=== PATIENT | female | born 1975 | race Caucasian/White ===

== ENCOUNTER 2019-05-17 17:49 | Observation (INO) | payer MEDICARE, MEDICAID, SELFPAY ==
--- NOTE | 2019-05-17 17:58 | ECG_ITS ---
Measurements Intervals [place] Rate: 104 P: 10 SC: 144 QRS: 31 QRSD: 77 T: 15 QT: 328 QTc: 432 Interpretive Statements SINUS TACHYCARDIA CANNOT RULE OUT SEPTAL INFARCT, AGE INDETERMINATE BASELINE ARTIFACT- I, III, AVL ABNORMAL ECG Electronically Signed On 05-18-2019 8:08:21 HOGSHEAD BUILDER by Kerwin Pate D.O.
--- NOTE | 2019-05-17 18:01 | ED.OVERDOSE ---
HPI - Overdose General Chief Complaint: Overdose Stated Complaint: AMB Time Seen by Provider: 05/17/19 17:55 Source: patient and EMS Mode of arrival: ambulatory Limitations: no limitations History of Present Illness HPI Narrative: 44-year-old woman with a history of type 2 diabetes and depression brought to the emergency department by EMS after having taken approximately 15 tablets of 850 mg metformin. She told staff that she had an argument with her paramour. Patient also states that she has been feeling poorly lately and very depressed. She states that she did not take any other medications and denies recent alcohol and drug use. She took her other medications (Januvia, duloxetine, sertraline on atorvastatin). She states that she had an admission for suicidality many years ago. complaint: intentional overdose Onset (ago): minute(s) (90) Intent: suicide attempt How Overdose Was Discovered: called 911 Context: Intentional Overdose: other (health problems) Associated symptoms: depression Treatments Prior to Arrival: none Related Data Home Medications Medication Instructions Recorded Confirmed atorvastatin 10 mg PO DAILY 05/17/19 05/17/19 duloxetine 20 mg PO DAILY 05/17/19 05/17/19 metformin 850 mg PO BID 05/17/19 05/17/19 sertraline 100 mg PO DAILY 05/17/19 05/17/19 sitagliptin [Januvia] 100 mg PO DAILY 05/17/19 05/17/19 Review of Systems Constitutional: Constitutional: Denies chills, Denies fatigue, Denies fever(s) and Denies weakness Eyes: Eyes: Denies change in vision and Denies photophobia ENT: Denies dysphagia, Denies epistaxis, Denies nasal congestion and Denies sore throat Cardiovascular: Cardiovascular: Denies chest pain and Denies radiating jaw, neck or arm pain Respiratory: Respiratory: Denies cough, Denies dyspnea and Denies wheezing Gastrointestinal: Gastrointestinal: Denies abdominal pain, Denies diarrhea, Denies nausea and Denies vomiting Genitourinary: Genitourinary: Denies nocturia and Denies dysuria Musculoskeletal: Musculoskeletal: Denies back pain, Denies arthralgias, Denies joint swelling and Denies muscle cramps Integumentary/Breasts: Skin/Breast: Denies pruritus, Denies erythema and Denies rash Neurologic: Denies vertigo, Denies dizziness and Denies syncope Psychiatric: Psychiatric: Reports as per HPI, Reports anxiety and Reports depression Endocrine: Endocrine: Denies fatigue, Denies polydipsia and Denies polyuria Hematologic/Lymphatic: Hematologic/Lymphatic: Denies easy bleeding and Denies easy bruising Allergic/Immunologic: Allergic/Immunologic: Denies lip swelling and Denies wheezing PMFSH Past Medical History Medical History Depression Dyslipidemia T2DM (type 2 diabetes mellitus) Social History Social History Smoking status: Never smoker Alcohol intake: never Substance use: never Living arrangements: alone Exam Const: General: no acute distress and alert Nutritional Appearance: obese Orientation/consciousness: patient oriented x3 Limitations: no limitations HENMT: Ears: TM's normal bilaterally and EAC's normal Mouth: Yes Normal oral and palatal mucosa present and Yes moist mucous membranes Throat: posterior oropharynx normal and uvula midline Eyes: Conjunctivae: conjunctivae normal Pupils: Equal, round and reactive pupils present EOM: EOMs intact bilaterally Direct Ophthalmoscopy: No photophobia Resp: Effort & Inspection: normal respiratory effort and not labored Auscultation: clear to auscultation bilaterally, no rales, no rhonchi and no wheezes Cardio: Rate: regular rate Rhythm: regular rhythm Heart sounds: no murmurs GI: Inspection: non-distended GI Palp: Yes Soft to palpation, No Tenderness to palpation present (GI), No Guarding due to palpation present (GI) and No Rigid due to palpation Auscultation: normal bowel sounds Skin: Gener
[2019-05-17] MEDS: CHARCOAL ACTIVATED LIQUID 25 GM/120 ML BOTTLE 50 GM PO (18:14)
[2019-05-17 18:20] VITALS: BP 136/87; PULSE 101; RESP 20; TEMP 36.7; O2SAT 96
--- NOTE | 2019-05-17 18:20 | PC.NURSE ---
POISON CONTROL CONTACTED FOR CONSULT - SPOKE WITH ERIC CASE #[id number] - STATES MONITOR FOR 4-6 HOURS AND REDRAW LACTIC ACID AND BMP TO WATCH FOR METABOLIC ACIDOSIS - ALL OTHER IN EXAM IS UNREMARKABLE
--- NOTE | 2019-05-17 18:46 | PC.NURSE ---
ACTIVATED CHARCOAL INGESTED COMPLETELY - PT IS OFFERED SANDWICH TRAY
[2019-05-17 18:58] LABS: Basophils Absolute Auto 0.06 K/mm3 (0.00-0.10); Basophils Percent Auto 0.8 % (0.0-1.0); Eosinophils Absolute Auto 0.15 K/mm3 (0.02-0.50); Eosinophils Percent Auto 2.1 % (1.0-6.0); Hematocrit 38.2 % (35.0-49.0); Hemoglobin 13.6 g/dL (12.0-15.0); Immature Granulocyte Absolute 0.04 K/mm3 (0.00-0.00); Immature Granulocyte Percent A 0.6 % (0.0-0.0); Lymphocytes Absolute Auto 2.35 K/mm3 (1.10-4.50); Lymphocytes Percent Auto 32.6 % (18.0-42.0); Mean Corpuscular HGB Conc 35.6 g/dL (32.0-36.0); Mean Corpuscular Hemoglobin 30.4 pg (27.0-31.0); Mean Corpuscular Volume 85.3 fL (78.0-102.0); Mean Platelet Volume 8.5 fl (9.2-11.8); Monocytes Absolute Auto 0.32 K/mm3 (0.10-0.90); Monocytes Percent Auto 4.4 % (2.0-11.0); Neutrophils Absolute Auto 4.3 K/mm3 (1.7-7.2); Neutrophils Percent Auto 59.5 % (50.0-70.0); Platelet Count Result 276 K/mm3 (150-420); Red Blood Count 4.48 M/mm3 (4.20-5.40); Red Cell Distribution Width 12.5 % (11.6-14.4); White Blood Count 7.2 K/mm3 (4.8-10.8)
--- NOTE | 2019-05-17 18:58 | PC.NURSE ---
FSBS 161 - PT HAD SMALL EMESIS, BREAD AND MEAT SEEN, SCANT AMOUNT OF CHARCOAL SEEN. PT DENIES BEING NAUSEATED
[2019-05-17 19:21] LABS: Appearance Urine Cloudy (Clear); Bilirubin Urine Negative (Negative); Color Urine Yellow (Yellow); Glucose Urine UA Negative (Negative); Ketones Urine Negative (Negative); Leukocyte Esterase Ur Trace LEU/UL (Negative); Nitrate Urine Positive (Negative); Protein Urine Trace (Negative); Specific Grav Ur >= 1.030 (1.010-1.020); Urobilinogen Urine 0.2 mg/dL (0.2-1.0)
[2019-05-17 19:23] LABS: Amphetamine Screen Urine Positive (Negative); Barbiturate Screen Urine Negative (Negative); Benzodiazepines Screen Urine Negative (Negative); Cannabinoid Screen Urine Negative (Negative); Cocaine Screen Urine Negative (Negative); Methadone Screen Urine Negative (Negative); Opiate Screen Urine Negative (Negative); Phencyclidine Screen Urine Negative (Negative)
[2019-05-17 19:24] LABS: Partial Thromboplastin Time 25.6 SEC (22.3-31.6)
[2019-05-17 19:27] LABS: Add Urine Microscopic? YES; Blood Urine Trace-Intact (Negative); Lactic Acid Reflex 2.5 mmol/L (0.4-2.0); RBC Urine 0-2 /hpf (0-2); Squamous Epithelial Cell Urine Many /hpf (Few)
[2019-05-17 19:28] LABS: Bacteria Urine 4+ /hpf
[2019-05-17 19:29] LABS: Pregnancy On Board Control Positive; Urine Pregnancy Test Negative
[2019-05-17 19:41] VITALS: BP 138/84; PULSE 102; O2SAT 99
[2019-05-17 19:44] LABS: Alanine Aminotransferase 26 U/L (14-59); Albumin Level 3.3 g/dL (3.4-5.0); Alkaline Phosphatase 67 U/L (46-116); Anion Gap 17.8 mmol/L (7-16); Aspartate Amino Transferase 12 U/L (15-37); Bilirubin,Total 0.3 mg/dL (0.00-1.00); Blood Urea Nitrogen 12 mg/dL (7-18); Calcium 8.7 mg/dL (8.5-10.1); Carbon Dioxide 22 mmol/L (21-32); Chloride 103 mmol/L (98-108); Estimated Glomerular Filt Rate > 60; Glucose 197 mg/dL (70-99); Magnesium 1.4 mg/dL (1.8-2.4); Osmolality Calculated 292 mOsm/kg (285-295); Potassium 3.8 mmol/L (3.5-5.1); Salicylate 1.8 mg/dL (2.8-20.0); Sodium 139 mmol/L (136-145); Total Protein 7.8 g/dL (6.4-8.2)
[2019-05-17 19:45] LABS: Acetaminophen 0 ug/mL (10-30); Ethanol < 3 mg/dL (0-6)
--- NOTE | 2019-05-17 19:55 | PC.NURSE ---
PT SLEEPING AT THIS TIME WITHOUT INCIDENT OR C/O - PT WILL GO TO ROOM 207 FOR ANAM
--- NOTE | 2019-05-17 19:59 | PC.NURSE ---
FSBS 154
[2019-05-17 20:00] LABS: Glucose Point of Care 154 (65-105)
[2019-05-17 20:00] LABS: Glucose Point of Care 161 (65-105)
[2019-05-17 20:10] VITALS: BP 122/76; PULSE 102; RESP 18; TEMP 36.2; O2SAT 96
--- NOTE | 2019-05-17 20:10 | PC.NURSE ---
Pt arrived to floor via stretcher, transferred without assistance to bed, orientated to room, call light, & policies, vital signs obtained, pt denies any pain, fresh ice water given, denies any other needs at this time.
--- NOTE | 2019-05-17 21:11 | PC.NURSE ---
pt resting in bed watching tv, denies any pain or any other needs at this time
[2019-05-17 21:48] LABS: Reflex Lactic Acid Yes or No Add Lactic
--- NOTE | 2019-05-17 22:09 | PC.NURSE ---
pt sleeping, respirations even and regular, no evidence of distress noted at this time
--- NOTE | 2019-05-17 22:14 | PC.NURSE ---
pt vomited large amt of black emesis and large amt of black runny stool, pt cleaned up and new gown put on
[2019-05-17] MEDS: ONDANSETRON INJ 4 MG/2 ML VIAL IV PUSH (22:32)
--- NOTE | 2019-05-17 22:51 | PC.NURSE ---
MD updated on patient's nausea/emisis/diarrhea. No new orders at this time.
--- NOTE | 2019-05-17 23:05 | PC.NURSE ---
pt resting in bed, denies any more nausea
--- NOTE | 2019-05-17 23:25 | PC.NURSE ---
lab at bedside
[2019-05-17 23:37] VITALS: BP 123/72; PULSE 94; RESP 18; TEMP 36.2; O2SAT 97
[2019-05-17 23:48] LABS: Anion Gap 17.1 mmol/L (7-16); Blood Urea Nitrogen 16 mg/dL (7-18); Calcium 8.7 mg/dL (8.5-10.1); Carbon Dioxide 22 mmol/L (21-32); Chloride 105 mmol/L (98-108); Estimated Glomerular Filt Rate 43; Glucose 191 mg/dL (70-99); Osmolality Calculated 296 mOsm/kg (285-295); Potassium 4.1 mmol/L (3.5-5.1); Sodium 140 mmol/L (136-145)
[2019-05-18] VITALS: PULSE 98
--- NOTE | 2019-05-18 00:08 | PC.NURSE ---
Dr Nation in pt room
--- NOTE | 2019-05-18 00:10 | ADMGEN ---
This patient, Laya Denis, was admitted to 2nd Floor Room 207-2. Patient oriented to hospital policies and general routines including ID bracelet, bed and alarms, visiting hours, pain management, procedures, bathroom and other care routines, personal items, smoking policy, room service/diet, and visiting hours. Information on how to activate the Rapid Response Team has been discussed. Patient encouraged to report perceived risks to care and to ask questions if they do not understand what they are told or what they should do.
[2019-05-18] MEDS: SODIUM CHLORIDE 0.9% IV 1,000 ML 999 ML IV CONT (00:16)
[2019-05-18 00:20] VITALS: BMI 45.2
--- NOTE | 2019-05-18 01:15 | PC.NURSE ---
pt resting in bed, denies any complaints, denies any desire to harm herself at this time.
--- NOTE | 2019-05-18 01:22 | PC.NURSE ---
0120 Clarified accucheck orders for pt. Accuchecks are to be done every 2 hrs.
--- NOTE | 2019-05-18 01:25 | PC.NURSE ---
lab at bedside
[2019-05-18 01:33] LABS: Base Excess ABG -3.4 mmol/L (0-2); HCO3 ABG 21.6 mmol/L (23-29); Modified Allen's Test Pass; Oxygen Content ABG 17.9 %vol (16.0-22.0); Oxygen Saturation ABG 96.5 % (95-97); Oxyhemoglobin 95.8 % (94-100); PCO2 ABG 39.1 mmHg (35-45); PO2 ABG 89.1 mmHg (80-90); Site Drawn RIGHT RADIAL; Total Hemoglobin 13.2 g/dL; pH ABG 7.36 (7.35-7.45)
[2019-05-18 01:34] LABS: Device ROOM AIR
[2019-05-18 02:00] LABS: Glucose Point of Care 163 (65-105)
--- NOTE | 2019-05-18 02:00 | PC.NURSE ---
pt resting in bed, glucose tested per order, pt denies any needs or desire to harm herself
--- NOTE | 2019-05-18 03:05 | PC.NURSE ---
pt sleeping, respirations even and regular, no evidence of distress noted
[2019-05-18 03:55] VITALS: BP 123/78; PULSE 86; RESP 20; TEMP 35.8; O2SAT 96
[2019-05-18 03:57] LABS: Glucose Point of Care 160 (65-105)
--- NOTE | 2019-05-18 04:00 | PC.NURSE ---
pt vitals obtained-wnl, glucose checked per order, pt denies any complaints or desire to harm herself, no evidence of distress noted
--- NOTE | 2019-05-18 05:06 | PC.NURSE ---
Lab at bedside, pt denies any complaints at this time
[2019-05-18 05:50] LABS: Anion Gap 15.8 mmol/L (7-16); Blood Urea Nitrogen 18 mg/dL (7-18); Calcium 8.5 mg/dL (8.5-10.1); Carbon Dioxide 23 mmol/L (21-32); Chloride 106 mmol/L (98-108); Estimated CRCL calculation 61 ml/min; Estimated Glomerular Filt Rate 41; Glucose 173 mg/dL (70-99); Osmolality Calculated 297 mOsm/kg (285-295); Potassium 3.8 mmol/L (3.5-5.1); Sodium 141 mmol/L (136-145)
[2019-05-18 06:01] LABS: Glucose Point of Care 157 (65-105)
[2019-05-18 06:02] LABS: Lactic Acid 1.6 mmol/L (0.4-2.0)
--- NOTE | 2019-05-18 06:15 | PC.NURSE ---
Pt sleeping, respirations even and regular, no evidence of distress noted,
[2019-05-18 07:29] LABS: Glucose Point of Care 153 (65-105)
[2019-05-18 07:39] VITALS: BP 129/71; PULSE 91; RESP 18; TEMP 36.1; O2SAT 97
--- NOTE | 2019-05-18 07:53 | PC.NURSE ---
No evidence of suicidal ideations at this time, waiting for hospitalist to declare medically stable for psych to come and talk to patient, cooperative, bedside glucose 153
--- NOTE | 2019-05-18 08:45 | PC.NURSE ---
Resting in bed, denies needs, ate well for breakfast, awaiting eval by vivienne taylor once declared stable by hospitalist
[2019-05-18] MEDS: DULOXETINE HCL 20 MG CAPSULE.DR PO (08:54)
[2019-05-18] MEDS: SERTRALINE HCL 50 MG TABLET 100 MG PO (08:54)
[2019-05-18] MEDS: ATORVASTATIN 10 MG TABLET PO (08:54)
[2019-05-18 09:49] LABS: Glucose Point of Care 278 (65-105)
--- NOTE | 2019-05-18 09:49 | PC.NURSE ---
bedside glucose 278, denies pain, no needs, telemetry SR 90's, skin warm and dry, cooperative, no signs of suicidal ideation noted, awaiting approval to have psych come evaluate patient
[2019-05-18 10:09] LABS: Magnesium 1.6 mg/dL (1.8-2.4); Phosphorus 3.6 mg/dL (2.6-4.7)
--- NOTE | 2019-05-18 11:08 | PC.NURSE ---
called [facility] for a referral, spoke with Litzy.
[2019-05-18 11:30] LABS: Glucose Point of Care 158 (65-105)
[2019-05-18 11:34] VITALS: BP 109/65; PULSE 92; PULSE 96; RESP 18; TEMP 36.1; O2SAT 96
--- NOTE | 2019-05-18 11:34 | PC.NURSE ---
Bedside glucose 158, napping at intervals, telemetry SR 90's
--- NOTE | 2019-05-18 11:57 | PM.IMHP ---
H&P: HPI History of Present Illness Chief complaint: AMB <Freda Boles NP - Last Filed: 05/18/19 17:05> Narrative: Laya Denis is a 44 year old female with Metformin overdose, admitted with lethargy, recent suicide attempt by intentionally taking 15 metformin tabs and then calling 911 for help, and having new acute renal failure. She stated that she knew that she would need to call 911 herself before she passed out because no one else in the living room was paying attention to her . She was brought to the emergency department by EMS after having taken approximately 15 tablets of 850 mg metformin. She told staff that she had an argument with her partner. Patient also states that she has been feeling poorly lately and very depressed. She states that she did not take any other medications and denies recent alcohol and drug use. She took her other medications (Januvia, duloxetine, sertraline on atorvastatin). She states that she had an admission for suicidality many years ago. She has been a patient of Psychologist Dr. Rosas in [place], [place] on prior occasion. Laya has history of DM II, major depression, PTSD since being stranded in [place] at age 43yo, Suicidal overdose, UTI (urinary tract infection), Methamphetamine abuse, and Obesity. After nearly 6 hours of observation in the ED, the patient's lactic acid increased to 3.0 and her creatinine went up to 1.34 from 0.95. Ordered an ABG to confirm absence of jazmin acidosis and gave her 1 L bolus of normal saline. Admit her as an OBS and recheck her chemistries and lactic acid in the morning and if the acute changes are resolved, will then have her evaluated by psych. Although she denied using any recreational drugs in the ED, finding of amphetamine in her urine suggests that meth use may be contributing to her behavior changes (ingestion with intent to harm herself). <Freda Boles NP - Last Filed: 05/18/19 17:05> Review of Systems Constitutional: Constitutional: Denies chills, Denies fatigue, Denies fever(s) and Denies weakness <Freda Boles NP - Last Filed: 05/18/19 17:05> Eyes: Eyes: Denies change in vision and Denies photophobia <Freda Boles NP - Last Filed: 05/18/19 17:05> ENT: Denies dysphagia, Denies vertigo, Denies dizziness, Denies lip swelling, Denies epistaxis, Denies nasal congestion and Denies sore throat <Freda Boles ELECTRIC DOLLY OPERATOR - Last Filed: 05/18/19 17:05> Cardiovascular: Cardiovascular: Denies chest pain, Denies syncope, Denies radiating jaw, neck or arm pain and Denies dyspnea <Freda oBles, ELECTRIC DOLLY OPERATOR - Last Filed: 05/18/19 17:05> Respiratory: Respiratory: Denies cough, Denies dyspnea and Denies wheezing <Freda Boles, ELECTRIC DOLLY OPERATOR - Last Filed: 05/18/19 17:05> Gastrointestinal: Gastrointestinal: Denies abdominal pain, Denies dysphagia, Denies diarrhea, Denies nausea and Denies vomiting <Freda Boles, ELECTRIC DOLLY OPERATOR - Last Filed: 05/18/19 17:05> Genitourinary: Genitourinary: Denies nocturia and Denies dysuria <Freda Boles ELECTRIC DOLLY OPERATOR - Last Filed: 05/18/19 17:05> Musculoskeletal: Musculoskeletal: Denies back pain, Denies arthralgias, Denies joint swelling and Denies muscle cramps <Freda Boles ELECTRIC DOLLY OPERATOR - Last Filed: 05/18/19 17:05> Integumentary/Breasts: Skin/Breast: Denies pruritus, Denies erythema and Denies rash <Freda Boles, ELECTRIC DOLLY OPERATOR - Last Filed: 05/18/19 17:05> Neurologic: Denies vertigo, Denies dizziness, Denies syncope and Denies weakness <Freda Boles ELECTRIC DOLLY OPERATOR - Last Filed: 05/18/19 17:05> Psychiatric: Psychiatric: Reports as per HPI, Reports anxiety and Reports depression <Freda Boles, ELECTRIC DOLLY OPERATOR - Last Filed: 05/18/19 17:05> Endocrine: Endocrine: Denies fatigue, Denies polydipsia and Denies polyuria <Freda Boles, ELECTRIC DOLLY OPERATOR - Last Filed: 05/18/19 17:05> Hematologic/Lymphatic: Hematologic/Lymphatic: Denies easy bleeding and Denies easy bruising <Freda Boles ELECTRIC DOLLY OPERATOR - Last Filed: 05/18/19 17:05> Allergic/Immunologic: Allergic/Immunologic: Denies lip swelling and Denies wheezi
--- NOTE | 2019-05-18 12:36 | PC.NURSE ---
Montez taylor here to speak with patient
[2019-05-18] MEDS: SODIUM CHLORIDE 0.9% IV 500 ML IV CONT ×2 (12:49→16:36)
[2019-05-18] MEDS: CIPROFLOXACIN 400 MG/D5W 200ML 200 ML 200 MG IVPB (12:49)
--- NOTE | 2019-05-18 12:56 | PC.NURSE ---
Poison control updated on patient status
--- NOTE | 2019-05-18 13:47 | PC.NURSE ---
safety plan signed by patient, cipro and fluids infusing, to recheck labs at 1500 and determine discharge at that time
--- NOTE | 2019-05-18 14:22 | PC.NURSE ---
PO fluids encouraged, denies needs, no suicidal ideations noted, telemetry SR 90's
--- NOTE | 2019-05-18 14:51 | P.PNCROSS_ITS ---
Event Note Event Note Event Note: For this patient encounter, I reviewed the ELECTRIC APPLIANCE INSTALLER documentation, treatment plan, and medical decision making; and I had aarj-rk-vsde time with this patient. Pt denies previous plan to overdose; no note was left; feeling depressed about upcoming anniversary of brother's 2 years ago, his birthday earlier this month, and the of her mother 13 months ago. Has no intention of thoughts of suicide today. She contemplated suicide when 28 y.o. but made no attempt. Has had no thoughts of it until last PM. Pt's mood is somewhat sad; affect is flat; normal thought processes. Pt to be evaluated today. Creatinine increased in E.D., this is to be followed up as outpatient.
[2019-05-18 15:22] LABS: Blood Urea Nitrogen 19 mg/dL (7-18); Calcium 8.6 mg/dL (8.5-10.1); Carbon Dioxide 24 mmol/L (21-32); Chloride 103 mmol/L (98-108); Estimated CRCL calculation 61 ml/min; Estimated Glomerular Filt Rate 41; Glucose 236 mg/dL (70-99); Osmolality Calculated 294 mOsm/kg (285-295); Sodium 137 mmol/L (136-145)
[2019-05-18 16:00] VITALS: BP 97/53; PULSE 94; PULSE 95; RESP 16; TEMP 36.2; O2SAT 97
--- NOTE | 2019-05-18 18:12 | PC.NURSE ---
AMBULATED WITH PATIENT AROUND NURSING UNIT X1. PT TOLERATED WELL. SCD'S IN PLACE. ENRIQUE HOSE IN PLACE.
[2019-05-18 20:00] VITALS: BP 99/58; PULSE 96; RESP 18; TEMP 35.9; O2SAT 97
--- NOTE | 2019-05-18 20:00 | PC.NURSE ---
Patient A&O lying in bed watching tv. Denies n/v and no confusion noted. Call light in reach.
--- NOTE | 2019-05-18 21:10 | PC.NURSE ---
Patient A&O lying in bed watching tv. Denies n/v and no confusion noted. Call light in reach.
--- NOTE | 2019-05-18 22:00 | PC.NURSE ---
Patient appears to be sleeping by the rise and fall of her chest. Respirations even and unlabored. No s/sx of n/v noted. Call light in reach.
--- NOTE | 2019-05-18 23:00 | PC.NURSE ---
Patient appears to be sleeping by the rise and fall of her chest. Respirations even and unlabored. No s/sx of n/v noted. Call light in reach.
[2019-05-19] VITALS: BP 127/81; PULSE 90; RESP 18; TEMP 35.9; O2SAT 97
[2019-05-19] MEDS: CIPROFLOXACIN 400 MG/D5W 200ML 200 ML 200 MG IVPB (00:03)
--- NOTE | 2019-05-19 00:10 | PC.NURSE ---
Patient awakened easily for VS. Patient denies pain/complaints/needs @ this time. Denies n/v. Patient is A&O. Respirations even and unlabored. ENRIQUE esquivel and SCD's continue. IV Ciprofloxacin started to RFA IV site. Site flushes with ease. No distress noted. Call light in reach.
--- NOTE | 2019-05-19 00:30 | PC.NURSE ---
IV site in right forearm infiltrated. Catheter removed intact. Hot compress applied. New IV site started in left hand by Carli Alvarez RN on 1st attempt. Patient tolerated well. Call light in reach.
--- NOTE | 2019-05-19 01:08 | PC.NURSE ---
Patient appears to be sleeping by the rise and fall of her chest. Respirations even and unlabored. No s/sx of n/v noted. No distress noted. Call light in reach.
[2019-05-19 03:06] LABS: Glucose Point of Care 162 (65-105)
--- NOTE | 2019-05-19 03:08 | PC.NURSE ---
Patient awake and playing on her phone while watching tv. Denies pain/complaints/needs/n/v. Patient remains A&O with no confusion noted. Respirations even and unlabored. No distress noted. Call light in reach.
[2019-05-19 04:00] VITALS: BP 122/79; PULSE 88; RESP 18; TEMP 36.7; O2SAT 96
[2019-05-19 05:24] LABS: Hematocrit 37.4 % (35.0-49.0); Mean Corpuscular HGB Conc 34.8 g/dL (32.0-36.0); Mean Corpuscular Hemoglobin 30.3 pg (27.0-31.0); Mean Corpuscular Volume 87.2 fL (78.0-102.0); Mean Platelet Volume 8.1 fl (9.2-11.8); Platelet Count Result 241 K/mm3 (150-420); Red Blood Count 4.29 M/mm3 (4.20-5.40); Red Cell Distribution Width 12.9 % (11.6-14.4); White Blood Count 7.5 K/mm3 (4.8-10.8)
[2019-05-19 05:41] LABS: Alanine Aminotransferase 25 U/L (14-59); Albumin Level 3.1 g/dL (3.4-5.0); Alkaline Phosphatase 57 U/L (46-116); Anion Gap 16.7 mmol/L (7-16); Aspartate Amino Transferase 13 U/L (15-37); Bilirubin,Total 0.3 mg/dL (0.00-1.00); Blood Urea Nitrogen 17 mg/dL (7-18); Calcium 8.9 mg/dL (8.5-10.1); Carbon Dioxide 25 mmol/L (21-32); Chloride 102 mmol/L (98-108); Estimated CRCL calculation 82 ml/min; Estimated Glomerular Filt Rate 58; Glucose 185 mg/dL (70-99); Osmolality Calculated 296 mOsm/kg (285-295); Potassium 3.7 mmol/L (3.5-5.1); Sodium 140 mmol/L (136-145); Total Protein 7.3 g/dL (6.4-8.2)
--- NOTE | 2019-05-19 07:30 | PC.NURSE ---
Psych consult completed 05/18. Creatinine decreased.
[2019-05-19 08:00] VITALS: BP 109/73; PULSE 88; PULSE 93; RESP 16; TEMP 35.7; O2SAT 96
--- NOTE | 2019-05-19 08:30 | PC.NURSE ---
Psych consult completed 05/18. Creatinine decreased.
[2019-05-19] MEDS: DULOXETINE HCL 20 MG CAPSULE.DR PO (08:51)
[2019-05-19] MEDS: SERTRALINE HCL 50 MG TABLET 100 MG PO (08:51)
--- NOTE | 2019-05-19 11:52 | PM.DS ---
DS: Diagnosis Admitting Diagnosis Admitting Diagnosis: Poisoning by unspecified drugs, medicaments and biological substances, intentional self-harm, initial encounter Discharge Diagnosis (1) Suicidal overdose: Qualifiers: Encounter type: initial encounter Qualified Code(s): T50.902A - Poisoning by unspecified drugs, medicaments and biological substances, intentional self-harm, initial encounter Code(s): T50.902A - Poisoning by unspecified drugs, medicaments and biological substances, intentional self-harm, initial encounter Status: Acute Assessment and Plan: no antidote for metformin toxicity patient evaluated by [facility]. according to [facility] patient is safe to discharge they will follow-up with her within 24 she discharge to a friend's house lactic acid within normal limits (2) UTI (urinary tract infection): Qualifiers: Hematuria presence: without hematuria Urinary tract infection type: acute cystitis Qualified Code(s): N30.00 - Acute cystitis without hematuria Code(s): N39.0 - Urinary tract infection, site not specified Status: Acute Assessment and Plan: her UA was +nitrate, WBC 10-15, Bacteria 4+; so positive UTI she will discharge with 7 days of Cipro (3) Depression: Qualifiers: Active/Remission status: currently active Depression Type: major depressive disorder Major depression episode severity: severe Major depression recurrence: recurrent Psychotic features: without psychotic features Qualified Code(s): F33.2 - Major depressive disorder, recurrent severe without psychotic features Code(s): F32.9 - Major depressive disorder, single episode, unspecified Status: Acute Assessment and Plan: continued home duloxetine and home sertraline dosing Her 42 yo brother on in the past, and she has been thinking about him recently. She stated that her father is supportive and if she needed help, she could call on him. will discharge to her friend's house (4) Acute renal failure: Code(s): N17.9 - Acute kidney failure, unspecified Status: Acute Assessment and Plan: creatinine has improved currently at 1.03 patient will follow-up with her PCP in 1 week for repeat renal function labs DS: Summary Hospital Course Hospital Course: admission H&P from 05/18/2019 Laya Denis is a 44 year old female with Metformin overdose, admitted with lethargy, recent suicide attempt by intentionally taking 15 metformin tabs and then calling 911 for help, and having new acute renal failure. She stated that she knew that she would need to call 911 herself before she passed out because no one else in the living room was paying attention to her . She was brought to the emergency department by EMS after having taken approximately 15 tablets of 850 mg metformin. She told staff that she had an argument with her partner. Patient also states that she has been feeling poorly lately and very depressed. She states that she did not take any other medications and denies recent alcohol and drug use. She took her other medications (Januvia, duloxetine, sertraline on atorvastatin). She states that she had an admission for suicidality many years ago. She has been a patient of Psychologist Dr. Rosas in [place], [place] on prior occasion. Laya has history of DM II, major depression, PTSD since being stranded in [place] at age 43yo, Suicidal overdose, UTI (urinary tract infection), Methamphetamine abuse, and Obesity. After nearly 6 hours of observation in the ED, the patient's lactic acid increased to 3.0 and her creatinine went up to 1.34 from 0.95. Ordered an ABG to confirm absence of jazmin acidosis and gave her 1 L bolus of normal saline. Admit her as an OBS and recheck her chemistries and lactic acid in the morning and if the acute changes are resolved, will then have her evaluated by psych. Sushilg
--- NOTE | 2019-05-24 13:42 | PC.NURSE ---
Discharge call back [phone] no answer
== END 2019-05-19 13:45 | disposition home or self-care (01) ==
LOC: CHSED 23:22 → CHS2ND 05-18 00:09
PROVIDERS: Nurse Practitioner; Admitting Provider Emergency Medicine; Emergency Provider Emergency Medicine; Visit Provider Emergency Medicine
DX: T38.3X2A Poisoning by insulin and oral hypoglycemic [antidiabetic] drugs, intentional self-harm, initial encounter (principal); N39.0 Urinary tract infection, site not specified; E11.9 Type 2 diabetes mellitus without complications; F32.9 Major depressive disorder, single episode, unspecified; E78.5 Hyperlipidemia, unspecified; A17.9 Tuberculosis of nervous system, unspecified; R00.0 Tachycardia, unspecified
CPT/HCPCS: 36415; 36600; 80048; 80053; 80307; 81001; 81025; 82805; 83605; 83735; 83930; 84100; 85025; 85027; 85610; 85730; 87077; 87086; 87088; 87186; 87661; 93005; 96361; 96365; 96366; 96374; 96375; 99285; A9270; G0378; J0744; J2405; J7030; J7040

== ENCOUNTER 2022-01-20 11:53 | Emergency (ER) | payer MEDICARE, MEDICAID, SELFPAY ==
--- NOTE | ~2022-01-20 | US_ITS ---
EXAMINATION: US pelvic complete w TV DATE: 01/20/2022 14:02 INDICATION: Vaginal bleeding TECHNIQUE: Multiple transabdominal and endovaginal sonographic images of the pelvis were obtained. COMPARISON: None. FINDINGS: The uterus measures 8.7 x 5.2 x 4.9 cm. The endometrial complex measures 16 mm in thickness at the u pper limits of normal during the secretory phase. On the cine images there appears to be a meniscus s ign with thin crescentic region of anechoic fluid surrounding a convex echogenic soft tissue density within the endocervical canal. The right ovary is not visualized. The left ovary measures 3.4 x 3.2 x 3.5 cm. 3.2 x 2.2 x 2.7 cm simple anechoic left ovarian cyst. Vascular flow with venous waveform alessia ntified at the left ovary on color Doppler. There is no free fluid in the pelvis. IMPRESSION: 1. Convex margin to echogenic material within the endocervical canal which could represent clot or so ft tissue with differential including submucosal fibroid, endometrial polyp or polypoid malignancy. W ould recommend further evaluation with hysteroscopy. 2. Endometrial complex measures 16 mm in thickness which is at the upper limits of normal during the secretory phase. 3. 3.2 cm simple appearing left ovarian cyst. Reviewed, dictated and finalized at location B. IMPRESSION: 1. Convex margin to echogenic material within the endocervical canal which coul d represent clot or soft tissue with differential including submucosal fibroid, endometrial polyp or polypoid malignancy. Would recommend further evaluation w ith hysteroscopy. 2. Endometrial complex measures 16 mm in thickness which is at the upper limits of normal during the secretory phase. 3. 3.2 cm simple appearing left ovarian cyst.
[2022-01-20 12:13] VITALS: BP 141/82; PULSE 112; RESP 18; TEMP 36.6; O2SAT 98
[2022-01-20 12:43] LABS: Basophils Absolute Auto 0.1 K/mm3 (0.0-0.1); Basophils Percent Auto 0.9 % (0.2-1.2); Eosinophils Absolute Auto 0.2 K/mm3 (0-0.3); Eosinophils Percent Auto 2.9 % (0-4.4); Hematocrit 37.7 % (37.0-47.0); Hemoglobin 12.7 g/dL (12.0-15.0); Immature Granulocyte Absolute 0.04 K/mm3 (0.00-0.031); Immature Granulocyte Percent A 0.5 % (0-0.5); Lymphocytes Absolute Auto 2.61 K/mm3 (0.9-3.2); Lymphocytes Percent Auto 32.9 % (18.3-44.2); Mean Corpuscular HGB Conc 33.7 g/dl (32-36); Mean Corpuscular Hemoglobin 29.1 pg (26-34); Mean Corpuscular Volume 86.3 fl (80-100); Mean Platelet Volume 8.5 fl (7.4-10.4); Monocytes Absolute Auto 0.4 K/mm3 (0.1-0.6); Monocytes Percent Auto 5.5 % (2.6-8.5); Neutrophils Absolute Auto 4.5 K/mm3 (1.3-6.7); Neutrophils Percent Auto 57.3 % (45.5-73.1); Platelet Count Result 266 k/mm3 (150-375); Red Blood Count 4.37 M/mm3 (4.2-5.4); Red Cell Distribution Width 13.1 % (11.5-14.5); White Blood Count 7.9 K/mm3 (4.5-10.0)
[2022-01-20 12:57] LABS: Alanine Aminotransferase 27 U/L (6-35); Albumin Level 4.2 g/dL (3.5-5.1); Alkaline Phosphatase 71 U/L (38-126); Anion Gap 11 mmol/L (8-16); Aspartate Amino Transferase 22 U/L (14-36); Bilirubin,Total 0.4 mg/dL (0.2-1.3); Blood Urea Nitrogen 16 mg/dL (7-17); Carbon Dioxide 24 mmol/L (22-30); Chloride 97 mmol/L (98-107); Estimated CRCL calculation 97 ml/min; Estimated Glomerular Filt Rate > 60; Glucose 406 mg/dL (65-110); Lipase 174 U/L (23-300); Potassium 4.6 mmol/L (3.4-5.0); Sodium 132 mmol/L (137-145)
[2022-01-20 13:00] VITALS: BP 138/75; PULSE 101; RESP 15; O2SAT 100
--- NOTE | 2022-01-20 13:00 | PC.NURSE ---
pt lethargic and diaphoretic in waiting area. pt responded to sternal rub. pt vomited while obtaining vital signs. pt brought back to room 9.
[2022-01-20 13:12] LABS: Glucose Point of Care 391 mg/dl (65-105)
[2022-01-20] MEDS: SODIUM CHLORIDE 0.9% IV 1,000 ML 999 ML IV CONT (13:18)
--- NOTE | 2022-01-20 13:39 | ED.FEMALEGU ---
HPI - Female Genitourinary General Chief complaint: Vaginal Bleeding Stated complaint: vaginal bleeing Time Seen by Provider: 01/20/22 13:14 History of Present Illness HPI Narrative: Pt began having heavy vaginal bleeding this morning. Pt says she has a history of irregular menses and normally has light periods but has been having some heavy ones lately. Pt has not found a beaming machine operator yet. Pt describes some lower abdominal cramps, Pt says filled two towels with blood, and some clots. Related Data Home Medications Medication Instructions Recorded Confirmed atorvastatin 10 mg tablet 10 mg PO DAILY 05/17/19 05/17/19 duloxetine 20 mg capsule,delayed 20 mg PO DAILY 05/17/19 05/17/19 release metformin 850 mg tablet 850 mg PO BID 05/17/19 05/17/19 sertraline 100 mg tablet 100 mg PO DAILY 05/17/19 05/17/19 sitagliptin phosphate 100 mg 100 mg PO DAILY 05/17/19 05/17/19 tablet (Januvia) Allergies Allergy/AdvReac Type Severity Reaction Status Date / Time Penicillins Allergy Swelling Verified 01/20/22 13:07 of Lip/Tongue/Throat Review of Systems Review of Systems: All systems reviewed & are unremarkable except as noted in HPI and below PMFSH Past Medical History Medical History (Updated 01/20/22 @ 16:48 by Mode Bell III, DO) Depression Dyslipidemia T2DM (type 2 diabetes mellitus) Social History Social History Years smoked: 20 Smoking status: Current every day smoker Tobacco type: cigarettes Second hand tobacco smoke exposure: Yes Alcohol intake: former Substance use: current Substance use type: methamphetamine Other substance usage details: last usage 2 days ago Gender identity (if verbalized by the patient): Female Spiritual care concerns: No Agree to blood products: Yes Exam Const: General: healthy appearing Nutritional Appearance: obese Orientation/consciousness: patient oriented x3 Limitations: no limitations HENMT: Head: normal to inspection Eyes: Conjunctivae: conjunctivae normal Resp: Effort & Inspection: normal respiratory effort Auscultation: clear to auscultation bilaterally Cardio: Rate: regular rate Rhythm: regular rhythm GI: GI Palp: Yes Soft to palpation and Yes Tenderness to palpation present (GI) (low badomen mild) Auscultation: normal bowel sounds Skin: General skin exam: normal color Rashes: no rashes Wounds: no wounds Neuro: General: patient oriented x3 and no focal motor deficits Cranial nerves: Yes Nystagmus not present Speech: normal speech Gait exam (Neuro): Normal gait present Extrem: General: normal to inspection Psych: Appearance: grossly normal Mental Status: mental status grossly normal Affect: normal affect Attitude: cooperative Course Course Emergency Course: pt stable in ED and bleeding is minimal, discussed with dr corral open source developer said start provera 10mg/d for 10 days and will see in office in follow up. Vital Signs Vital signs: Vital Signs Temperature 97.8 F 01/20/22 12:13 Pulse Rate 112 H 01/20/22 12:13 Respiratory Rate 18 01/20/22 12:13 Blood Pressure 141/82 H 01/20/22 12:13 Pulse Oximetry 98 01/20/22 12:13 Oxygen Delivery Room Air 01/20/22 12:13 Temperature 97.8 F 01/20/22 12:13 Pulse Rate 90 01/20/22 17:25 Respiratory Rate 16 01/20/22 17:25 Blood Pressure 116/79 01/20/22 17:25 Pulse Oximetry 97 01/20/22 17:25 Oxygen Delivery Room Air 01/20/22 12:13 MDM - Female Genitourinary Lab Data Result diagrams: 01/20/22 12:28 01/20/22 12:28 Labs: Lab Results 01/20/22 01/20/22 01/20/22 Range/Units 12:28 12:28 12:46 WBC 7.9 (4.5-10.0) K/mm3 RBC 4.37 (4.2-5.4) M/mm3 Hgb 12.7 (12.0-15.0) g/dL Hct 37.7 (37.0-47.0) % MCV 86.3 (80-100) fl MCH 29.1 (26-34) pg MCHC 33.7 (32-36) g/dl RDW 13.1 (11.5-14.5) % Plt Count 266 (150-375) k/mm
[2022-01-20 14:39] LABS: SPREG INTERNAL CONTROL Positive; Serum Qual hCG Negative
[2022-01-20 15:05] LABS: Appearance Urine Clear (Clear); Bilirubin Urine Negative (Negative); Blood Urine 1+ (Negative); Color Urine Yellow (Yellow); Glucose Urine UA 3+ mg/dL (Negative); Ketones Urine Trace mg/dL (Negative); Leukocyte Esterase Ur Negative LEU/UL (Negative); Nitrate Urine Negative (Negative); Protein Urine 1+ mg/dL (Negative); Urobilinogen Urine 0.2 mg/dL (<2.0); pH Urine 5.5 (5.0-9.0)
[2022-01-20 15:19] LABS: Bacteria Urine Trace /hpf; RBC Urine 0-2 /hpf (0-2); WBC Urine 0-3 /hpf
[2022-01-20 15:20] LABS: Add Urine Microscopic? YES
[2022-01-20 17:25] VITALS: BP 116/79; PULSE 90; RESP 16; O2SAT 97
== END 2022-01-20 17:30 | disposition home or self-care (01) ==
PROVIDERS: Emergency Medicine; Emergency Provider Emergency Medicine
DX: N93.9 Abnormal uterine and vaginal bleeding, unspecified (principal); E78.5 Hyperlipidemia, unspecified; E11.9 Type 2 diabetes mellitus without complications; F17.210 Nicotine dependence, cigarettes, uncomplicated; Z79.84 Long term (current) use of oral hypoglycemic drugs
CPT/HCPCS: 36415; 51701; 76830; 76856; 80053; 81001; 81025; 82948; 83690; 84703; 85025; 86850; 86900; 86901; 87070; 87491; 87591; 87808; 96360; 96361; 99284; A9270; J7030